=== PATIENT | male | born 1945 | race Caucasian/White ===

== ENCOUNTER 2021-05-16 18:54 | Emergency (ER) | payer OTHER, SELFPAY ==
--- NOTE | ~2021-05-16 | XR_ITS ---
XR chest 2V DATE: 05/16/2021 19:34 INDICATION: Shortness of breath. Aspiration. TECHNIQUE: 2 views COMPARISON: None FINDINGS: Normal heart size. No hilar or mediastinal enlargement. There are mild patchy infiltrates primarily in the mid lung zones bilaterally. No pleural effusion or pulmonary vascular congestion or pneumothorax. IMPRESSION: Mild patchy bilateral primarily mid lung field infiltrates Reviewed, dictated and finalized at location A. IC PHYSICIAN DIRECTOR
[2021-05-16 19:00] VITALS: BP 124/53; PULSE 99; RESP 18; TEMP 35.5; O2SAT 99
--- NOTE | 2021-05-16 19:09 | ED.URI ---
HPI - URI/Sore Throat General Chief Complaint: Unspecified Stated Complaint: choking Time Seen by Provider: 05/16/21 19:07 Source: patient History of Present Illness HPI Narrative: 76-year-old male diabetes mellitus presented to the ER with -- foreign body sensation in his throat with recurrent coughing which came on suddenly while he was eating pizza -- subsequent swallowing of liquids caused recurrent coughing spells. No vomiting or regurgitation of fluid after drinking fluids. -- complains of shortness of breath with an oxygen saturation of 98% on air. -- Speech is clear. No stridor noted. Onset (ago): minute(s) ( 30 minutes ago.) Related Data Home Medications Medication Instructions Recorded Confirmed metformin 250 mg PO DAILY 05/16/21 05/16/21 Allergies Allergy/AdvReac Type Severity Reaction Status Date / Time No Known Allergies Allergy Verified 05/16/21 19:00 Review of Systems Review of Systems: All systems reviewed & are unremarkable except as noted in HPI and below ROS unobtainable: Yes unobtainable due to endotracheal tube Constitutional: Constitutional: Reports as per HPI and Reports no additional constitutional complaints Eyes: Eyes: Reports as per HPI and Reports no additional eye complaints ENT: Reports system reviewed and no additional complaints, except as documented and Reports dysphagia Comments: Foreign body sensation in the throat with repeated coughing. Cardiovascular: Cardiovascular: Reports as per HPI and Reports no additional cardiovascular complaints Respiratory: Respiratory: Reports as per HPI, Reports no additional respiratory complaints and Reports cough Comments: Coughing on attempted swallowing of liquids. Gastrointestinal: Gastrointestinal: Reports as per HPI and Reports no additional gastrointestinal complaints Genitourinary: Genitourinary: Reports no additional male genitourinary complaints Musculoskeletal: Musculoskeletal: Reports no additional musculoskeletal complaints Integumentary/Breasts: Skin/Breast: Reports system reviewed and no additional complaints, except as docu Neurologic: Reports system reviewed and no additional complaints, except as documented Psychiatric: Psychiatric: Reports no additional psychiatric complaints Endocrine: Endocrine: Reports no additional endocrine complaints Hematologic/Lymphatic: Hematologic/Lymphatic: Reports no additional hematologic/lymphatic complaints Allergic/Immunologic: Allergic/Immunologic: Reports no additional allergic/immunologic complaints Exam Const: General: cooperative and healthy appearing HENMT: Head: normal to inspection and No palpable skull fracture present Ears: hearing grossly normal bilaterally General nose exam: Normal external nose present Face and sinus: normal facial exam Mouth: Yes Normal oral and palatal mucosa present and Yes lip normal Throat: posterior oropharynx normal and tonsils normal Eyes: General: appearance normal, both eyes and all related structures Visual Jeffries: normal visual jeffries by confrontation Neck: Neck: normal visual inspection and full ROM Chest: Chest palpation & inspection: normal inspection of the chest Resp: Effort & Inspection: normal respiratory effort Auscultation: clear to auscultation bilaterally Cardio: Palpation: normal PMI Rate: regular rate Heart sounds: S1 normal heart sound present and S2 normal heart sound present GI: Inspection: normal to inspection : General: Yes no CVA tenderness Back/Spine/Pelvis: Back: no CVA tenderness Skin: General skin exam: normal color and no rashes or lesions noted Neuro: General: oriented to person, oriented to place and oriented to time Extrem: General: normal to inspection and full ROM Psych: Appearance: grossly normal and well kempt Course Course Emergency Course: The patient continues to have coughing spells. He had ongoing foreign body sensation in the throat. Chest x-ray revealed bilateral
--- NOTE | 2021-05-16 19:15 | PC.NURSE ---
Report given to Jocelynn PEREZ, bedside shift report done.
[2021-05-16] MEDS: GLUCAGON FOR INJ 1 MG VIAL IM (19:46)
--- NOTE | 2021-05-16 20:00 | PC.NURSE ---
Patient upset at this time stating that staff is not doing anything for me right now and I am going to choke to . I'm leaving because this is bullshit. RN educated patient on ED desire to transfer patient for GI procedure. RN educated patient on need for additional labs, COVID swab, and radiology exams prior to transfer. Patient refused at this time. angry and states he is leaving. agreeable to signing AMA form.
== END 2021-05-16 20:05 | disposition left against medical advice (07) ==
PROVIDERS: Emergency Provider Internal Medicine Critical Care Medicine; PCP Physician Assistant
DX: R13.10 Dysphagia, unspecified (principal); J69.0 Pneumonitis due to inhalation of food and vomit; E11.9 Type 2 diabetes mellitus without complications
CPT/HCPCS: 71046; 96372; 99283; J1610

== ENCOUNTER 2022-07-17 17:59 | Emergency (ER) | payer OTHER, SELFPAY ==
--- NOTE | ~2022-07-17 | XR_ITS ---
EXAMINATION: XR chest 2V DATE: 07/17/2022 18:55 INDICATION: Shortness of breath and cough TECHNIQUE: PA and lateral views of the chest are obtained. COMPARISON: 05/16/2021 FINDINGS: There is mild atelectasis of the lungs. No pleural effusion or pneumothorax. The cardiomedi astinal silhouette is normal. There is mild thoracic spondylosis. IMPRESSION: 1. Mild atelectasis of the lungs. Reviewed, dictated and finalized at location F.
[2022-07-17 18:15] VITALS: BP 130/77; PULSE 94; RESP 16; TEMP 37.2; O2SAT 95
--- NOTE | 2022-07-17 18:41 | ED.GENADULT ---
HPI - General Adult General Chief complaint: Upper Respiratory Infection Stated complaint: deep cough Source: patient, family and RN notes reviewed History of Present Illness HPI narrative: 77-year-old male presents to urgent care with niece at side. Patient states he has been feeling ill for the last 3 days. Patient reports a cough, chest tightness, shortness of breath, congestion, and increased tiredness. Niece states pt has been slightly off balance the last couple days. Patient denies any chest pain, vomiting, or diarrhea. Denies any sore throat, abdominal pain, or dysuria. Related Data Home Medications Medication Instructions Recorded Confirmed metformin 250 mg PO DAILY 05/16/21 05/16/21 Allergies Allergy/AdvReac Type Severity Reaction Status Date / Time No Known Allergies Allergy Verified 05/16/21 19:00 Review of Systems Review of Systems: Pertinent positives and pertinent negatives per HPI. [facility] Comments At the time of my signature, I reviewed and agree with the nursing past medical, surgical, social, and family history. There is no relevant family history pertinent to the patient complaint. Exam Narrative: GENERAL: Appears lethargic. HEAD: normocephalic, atraumatic. EYES: Sclera clear/white. Vision is grossly intact. EARS: External ears normal, auditory canals clear and without drainage, TMs normal without perforation. Hearing grossly intact. NOSE: External nose normal with no obvious nasal discharge, nares without redness, no rhinorrhea. THROAT: Mucous membranes moist, posterior pharynx erythemic. No exudate noted. NECK: Neck supple, non-tender without lymphadenopathy, masses or thyromegaly. CARDIOVASCULAR: Regular rate and rhythm without murmurs, gallops, or rubs. RESPIRATORY: Clear to auscultation. Breath sounds equal bilaterally. No wheezes, rales, or rhonchi. GASTROINTESTINAL: Abdomen soft, non-tender, nondistended. Bowel sounds are active. No hepato-splenomegaly, or palpable masses. No guarding. SKIN: warm, intact with no suspicious lesions or rash, good texture and turgor. NEURO: awake, alert, and oriented to person, place and time. There were no obvious focal neurologic abnormalities. EXTREMITIES: No clubbing, cyanosis, or edema. No joint tenderness, effusion, or edema noted. Course Course Level of Care: Express Care Visit Vital Signs Vital signs: Vital Signs Temperature 98.9 F 07/17/22 18:15 Pulse Rate 94 07/17/22 18:15 Respiratory Rate 16 07/17/22 18:15 Blood Pressure 130/77 07/17/22 18:15 Pulse Oximetry 95 07/17/22 18:15 Oxygen Delivery Room Air 07/17/22 18:15 Temperature 98.9 F 07/17/22 18:15 Pulse Rate 94 07/17/22 18:15 Respiratory Rate 16 07/17/22 18:15 Blood Pressure 130/77 07/17/22 18:15 Pulse Oximetry 95 07/17/22 18:15 Oxygen Delivery Room Air 07/17/22 18:15 Reviewed Medical Decision Making MDM Narrative Medical decision making narrative: Discussed reasons with niece and pt for recommendations for transfer, including further workup and evaluation for lethargy, the need for blood work, and possible IV fluids, and possible admission. Pt and niece agree to be transferred and niece agrees to take him by POV. Pt stable. VSS. Report given to Dr. Frye at [place] [facility]. Differential Diagnosis Differential Diagnosis: Pneumonia, viral illness, cardiac event, dehydration Vital Signs Vital Signs: Vital Signs Temperature 98.9 F 07/17/22 18:15 Pulse Rate 94 07/17/22 18:15 Respiratory Rate 16 07/17/22 18:15 Blood Pressure 130/77 07/17/22 18:15 Pulse Oximetry 95 07/17/22 18:15 Oxygen Delivery Room Air 07/17/22 18:15 Temperature 98.9 F 07/17/22 18:15 Pulse Rate 94 07/17/22 18:15 Respiratory Rate 16 07/17/22 18:15 Blood Pressure 130/77 07/17/22 18:15 Pulse Oximetry 95 07/17/22 18:15 Oxygen Delivery Room Air 07/17/22 18:15 Lab Data Lab results reviewed: Yes I reviewed the patient's lab res
--- NOTE | 2022-07-17 18:44 | ECG_ITS ---
Measurements Intervals Adger Rate: 87 P: 60 [place]: 164 QRS: 235 QRSD: 149 T: 3 QT: 382 QTc: 462 Interpretive Statements SINUS RHYTHM RIGHT BUNDLE BRANCH BLOCK Electronically Signed On 07-18-2022 10:16:01 CDT by Artem Varela M.D.
--- NOTE | 2022-07-17 20:32 | PC.NURSE ---
1919 just prior to leaving building family member/pt informed staff pt he likely will not go directly to [facility] at this time as instructed
== END 2022-07-17 19:20 | disposition home or self-care (01) ==
PROVIDERS: Emergency Provider Nurse Practitioner Family; PCP Physician Assistant
DX: B34.9 Viral infection, unspecified (principal); R53.83 Other fatigue; Z20.822 Contact with and (suspected) exposure to COVID-19; E11.9 Type 2 diabetes mellitus without complications; Z79.84 Long term (current) use of oral hypoglycemic drugs; I45.10 Unspecified right bundle-branch block
CPT/HCPCS: 71046; 87081; 87426; 87804; 87880; 93005; 99213; C9803; G0463